=== PATIENT | female | born 1960 | race Caucasian/White ===

== ENCOUNTER 2021-11-15 10:25 | Emergency (ER) | payer OTHER ==
[2021-11-15] MEDS ORDERED: LIDOCAINE 1% W/EPI 1:100,000 MDV 50 ML VIAL ONE (10:40)
--- NOTE | 2021-11-15 10:58 | RAD REPORT ---
EXAM DESCRIPTION: CT - [id number] - 11/15/2021 10:43 am CLINICAL HISTORY: Trip and fall, left-sided head trauma, headache, neck pain COMPARISON: No comparisons TECHNIQUE: Axial 5 mm thick images of the head were obtained. Axial 2 mm thick images of the cervic al spine were obtained with sagittal and coronal reconstruction images generated and reviewed. All CT scans are performed using dose optimization technique as appropriate and may include automated exposure control or mA/KV adjustment according to patient size. FINDINGS: No intracranial hemorrhage, mass, edema or acute intracranial finding. No acute infarction of cortical level. No cortical edema or sulcal effacement. No significant atrophy or chronic ischemi c changes noted. Ventricles are normal. A 17 millimeter rounded area of CSF attenuation is present la teral to the right basal ganglia. 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 No extra-axial fluid collections. Mastoid air cells are clear. Minimal mucos al thickening seen in the posterior left maxillary sinus. Mild left deviation of the nasal septum is present. No globe or orbital content abnormality identified. No globe or orbit abnormality seen. Cervical bodies are normal in height. There is straightening the usual cervical lordosis that may be artifact of positioning for the scanned. C6-7 and C7-T1 mild disc space narrowing present. Multilevel posterior endplate spurring, disc bulge and uncovertebral joint hypertrophy are present. There is sp inal stenosis to 9 mm at C4-5 with mild left bony foraminal encroachment. There is spinal stenosis to 9 mm at C5-6 and 8 mm at C6-7. Mild bony foraminal encroachment at C5-6. No fracture or acute bony a bnormality. Central canal detail is inherently limited. No paraspinal mass or hematoma. IMPRESSION: Negative CT head examination for acute or significant finding. Negative CT cervical spine examination for acute finding. Multilevel cervical spondylosis changes pr esent with spinal stenosis at C4-5, C5-6 and C6-7.
--- NOTE | 2021-11-15 11:25 | RAD REPORT ---
EXAM DESCRIPTION: RAD - Humerus Left - 11/15/2021 10:58 am CLINICAL HISTORY: Left arm pain status post fall FINDINGS: No fracture is seen
[2021-11-15] MEDS ORDERED: DERMABOND SKIN ADHESIVE TOP ONE (11:47)
--- NOTE | 2021-11-15 12:05 | EDPHYS ---
Physician Documentation [facility] Name: Mariluz Vazquez Age: 61 yrs Sex: Female : 1960 Arrival Date: 11/15/2021 Time: 10:29 Bed 14 Private MD: ED Physician Ish Omalley HPI: 11/15 10:40 This 61 yrs old Female presents to ER via EMS with complaints of Fall Injury. cp 10:40 Details of fall: The patient fell from an upright position, while walking, and struck a cp concrete surface. Onset: The symptoms/episode began/occurred just prior to arrival. 10:40 Associated injuries: The patient sustained injury to the head, laceration, of the above cp left eye, swelling, left upper arm, painful injury. 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 reports concern patient did have brief LOC. Historical: - Allergies: 10:31 No Known Allergies; bp - Home Meds: 10:31 None [Active]; bp - PMHx: 10:31 None; bp - Immunization history:: Adult Immunizations up to date. - Social history:: Smoking status: Patient denies any tobacco usage or history of. ROS: 10:50 Constitutional: Negative for body aches, chills, fever, poor PO intake. cp 10:50 Eyes: Negative for pain, redness. cp 10:50 Neck: Negative for pain with movement, pain at rest, stiffness. 10:50 Cardiovascular: Negative for chest pain, palpitations. 10:50 Respiratory: Negative for cough, shortness of breath, wheezing. 10:50 Abdomen/GI: Negative for abdominal pain, vomiting, diarrhea, constipation. 10:50 Back: Negative for pain at rest, pain with movement. 10:50 MS/extremity: Positive for pain, tenderness, of the left upper arm, Negative for decreased range of motion, deformity, paresthesias. 10:50 Neuro: Negative for altered mental status, dizziness, seizure activity, weakness. 10:50 All other systems are negative. Exam: 10:53 Constitutional: The patient appears in no acute distress, alert, awake, cp non-diaphoretic, non-toxic, well developed, well nourished. 10:53 Head/face: Noted is ecchymosis, that is mild, of the above left eye, a laceration(s), cp that is deep, that is linear, of the above left eye, swelling, that is mild, of the above left eye. 10:53 Eyes: Pupils: equal, round, and reactive to light and accomodation, Extraocular movements: intact throughout, Conjunctiva: normal, no exudate, no injection, Sclera: no appreciated abnormality, Lids and lashes: appear normal, bilaterally. 10:53 ENT: External ear(s): are unremarkable, Ear canal(s): are normal, clear, TM's: dullness, bilaterally, Nose: is normal, Mouth: Lips: moist, Oral mucosa: moist, Posterior pharynx: Airway: no evidence of obstruction, patent. 10:53 Neck: C-spine: vertebral tenderness, is not appreciated, crepitus, is not appreciated, ROM/movement: pain, is not appreciated, limited range of motion, is not appreciated. 10:53 Chest/axilla: Inspection: normal. 10:53 Cardiovascular: Rate: normal, Rhythm: regular. 10:53 Respiratory: the patient does not display signs of respiratory distress, Respirations: normal, no use of accessory muscles, no retractions, labored breathing, is not present, Breath sounds: are clear throughout, no decreased breath sounds, no stridor, no wheezing. 10:53 Abdomen/GI: Inspection: abdomen appears normal, Palpation: abdomen is soft and non-tender, in all quadrants. 10:53 Back: pain, is absent, ROM is normal. 10:53 Musculoskeletal/extremity: Extremities: grossly normal except: noted in the left upper arm: pain, tenderness, There is no evidence of decreased ROM, deformity. 10:53 Neuro: Orientation: to person, place \T\ time. Mentation: is normal, Cerebellar function: is grossly normal, Motor: moves all fours, strength is normal, Sensation: is normal. Vital Signs: 10:29 BP 156 / 87; Pulse 73; Resp 16; Temp 98; Pulse Ox 99% ; bp 11:30 BP 147 / 79; Pulse 75; Resp 17; Pulse Ox 99% ; bp 12:30 BP 151 / 77; Pulse 77; Resp 17; Pulse Ox 100% ; bp Rika Coma Score: 10:40 Eye Response: spontaneous(4). Verbal Response: oriented(5). Motor Response: obeys cp commands(6). Total: 15. 12:03 Eye Response: spontaneous(4). Verbal Response: oriented(5). Motor Response: obeys cp commands(6). Total: 15. Laceration: 23:50 Wound Repair of 2cm ( 0.8in ) subcutaneous laceration to above left eye. Linear cp shaped.. Distal neuro/vascular/tendon intact. Anesthesia: Wound infiltrated with 3 mls of 1% lidocaine w/ Epi. Wound prep: Simple cleansing by me. Skin closed with 4 6-0 Prolene using interrupted sutures and sterile technique. Dressed with Bacitracin, 4x4's. Patient tolerated well. MDM: 10:31 Patient medically screened. cp 11:00 Differential diagnosis: abrasion, closed head injury, contusion, fracture, laceration, cp multiple trauma. 12:02 Data reviewed: vital signs, nurses notes, radiologic studies, CT scan, plain films. cp 12:02 Test interpretation: by ED physician or midlevel provider: plain radiologic studies. cp Counseling: I had a detailed discussion with the patient and/or guardian regarding: the historical points, exam findings, and any diagnostic results supporting the discharge/admit diagnosis, radiology results, to return to the emergency department if symptoms worsen or persist or if there are any questions or concerns that arise at home. Response to treatment: the patient's symptoms have markedly improved after treatment. Special discussion: Based on the patient's history, exam and DX evaluation, there is no indication for emergent intervention or inpatient TX. It is understood by the patient/guardian that if the SXs persist or worsen they need to return immediately for re-evaluation. 11/15 10:30 Order name: XRAY Humerus LEFT; Complete Time: 11:36 cp 11/15 10:30 Order name: CT Head C Spine; Complete Time: 11:36 cp 11/15 11:37 Interpretation: Reviewed report. cp 11/15 10:30 Order name: Dressing - Wound; Complete Time: 10:47 cp 11/15 10:30 Order name: Gloves, Sterile; Complete Time: 10:47 cp 11/15 10:30 Order name: Setup Suture Tray; Complete Time: 10:47 cp 11/15 11:36 Order name: Wound Care: please clean and irrigate wound; Complete Time: 12:28 cp 11/15 12:00 Order name: Wound dressing; Complete Time: 12:28 cp 11/15 12:00 Order name: Sling; Complete Time: 12:28 cp Administered Medications: 10:45 Drug: Lidocaine-Epinephrine -1%: (1:100,000) 5 ml Volume: 20 ml; Route: Infiltration; bp 12:28 Not Given (Patient Refused): Acetaminophen 1000 mg PO once bp Disposition Summary: 11/15/21 12:04 Discharge Ordered Location: Home cp Problem: new cp Symptoms: have improved cp Condition: Stable cp Diagnosis - Laceration without foreign body of unspecified part of head cp - Pain in left upper arm - from fall cp Followup: cp - With: Private Physician - When: 1 week - Reason: Staple/Suture removal Discharge Instructions: - Discharge Summary Sheet cp - Contusion cp - Head Injury, Adult cp - Facial Laceration cp Forms: - Medication Reconciliation Form cp - Thank You Letter cp - Antibiotic Education cp - Prescription Opioid Use cp Addendum: 11/18/2021 19:26 Co-signature as Attending Physician, Ish Omalley MD. r n Signatures: Dispatcher [employer] Ish Crowe MD MD rn Page, Corey, PA PA cp Troy Lao, RN RN bp
--- NOTE | 2021-11-15 12:05 | ER ---
Nurse's Notes [facility] Name: Mariluz Vazquez Age: 61 yrs Sex: Female : 1960 Arrival Date: 11/15/2021 Time: 10:29 Bed 14 Private MD: Diagnosis: Laceration without foreign body of unspecified part of head;Pain in left upper arm-from fall Presentation: 11/15 10:29 Chief complaint: EMS states: MECHANICAL FALL WHILE WALKING ON SIDEWALK, NO LOC, NO bp BLOOD THINNERS. Coronavirus screen: At this time, the client does not indicate any symptoms associated with coronavirus-19. Ebola Screen: No symptoms or risks identified at this time. Initial Sepsis Screen: Does the patient meet any 2 criteria? No. Patient's initial sepsis screen is negative. Does the patient have a suspected source of infection? No. Patient's initial sepsis screen is negative. Risk Assessment: Do you want to hurt yourself or someone else? Patient reports no desire to harm self or others. Onset of symptoms was November 15, 2021 at 09:30. Care prior to arrival: None. 10:29 Method Of Arrival: EMS: [facility] bp 10:29 Acuity: CHRISTIANE 4 bp Triage Assessment: 10:31 General: Appears in no apparent distress. comfortable, Behavior is calm, cooperative, bp appropriate for age. Pain: Complains of pain in head. EENT: No deficits noted. Neuro: Level of Consciousness is awake, alert, obeys commands, Oriented to Appropriate for age. Cardiovascular: No deficits noted. Respiratory: No deficits noted. GI: No signs and/or symptoms were reported involving the gastrointestinal system. : No signs and/or symptoms were reported regarding the genitourinary system. Derm: No deficits noted. Musculoskeletal: No deficits noted. Injury Description: Bruise sustained to head. Historical: - Allergies: 10:31 No Known Allergies; bp - Home Meds: 10:31 None [Active]; bp - PMHx: 10:31 None; bp - Immunization history:: Adult Immunizations up to date. - Social history:: Smoking status: Patient denies any tobacco usage or history of. Screenin:32 Abuse screen: Denies threats or abuse. Denies injuries from another. Nutritional bp screening: No deficits noted. Tuberculosis screening: No symptoms or risk factors identified. Fall Risk None identified. Assessment: 10:32 General: SEE TRIAGE NOTE. bp 11:45 Reassessment: PROVIDER AT B/S FOR LAC REPAIR. bp 12:30 Reassessment: PT D/C HOME AMBULATORY WITH FAMILY, DX WITH LACERATION. bp Vital Signs: 10:29 BP 156 / 87; Pulse 73; Resp 16; Temp 98; Pulse Ox 99% ; bp 11:30 BP 147 / 79; Pulse 75; Resp 17; Pulse Ox 99% ; bp 12:30 BP 151 / 77; Pulse 77; Resp 17; Pulse Ox 100% ; bp Crane Coma Score: 10:40 Eye Response: spontaneous(4). Verbal Response: oriented(5). Motor Response: obeys cp commands(6). Total: 15. 12:03 Eye Response: spontaneous(4). Verbal Response: oriented(5). Motor Response: obeys cp commands(6). Total: 15. ED Course: 10:29 Patient arrived in ED. bp 10:29 Wenceslao Okeefe PA is PHCP. cp 10:29 Ish Omalley MD is Attending Physician. cp 10:30 Triage completed. bp 10:31 Arm band placed on. bp 10:32 Patient has correct armband on for positive identification. Bed in low position. Call bp light in reach. Side rails up X2. Adult w/ patient. 10:34 Troy Lao, RN is Primary Nurse. bp 10:45 CT Head C Spine In Process Unspecified. EDMS 10:59 XRAY Humerus LEFT In Process Unspecified. EDMS 11:45 Wound care: to laceration located on left eye was cleaned with Betadine, Patient bp tolerated well. 12:15 Assist provider with laceration repair on left eye that was 2.5 cm. or less using bp sutures. Set up tray. Performed by Wenceslao HAYNES Dressed with Neosporin, Patient tolerated well. Wound care:. 12:30 Patient did not have IV access during this emergency room visit. bp Administered Medications: 10:45 Drug: Lidocaine-Epinephrine -1%: (1:100,000) 5 ml Volume: 20 ml; Route: Infiltration; bp 12:28 Not Given (Patient Refused): Acetaminophen 1000 mg PO once bp Outcome: 12:04 Discharge ordered by . cp 12:30 Discharged to home ambulatory, with family. bp 12:30 Condition: stable 12:30 Discharge instructions given to patient, Instructed on discharge instructions, follow up and referral plans. wound care, Demonstrated understanding of instructions, follow-up care, wound care. 12:32 Patient left the ED. bp Signatures: Dispatcher [employer] EDMS Wenceslao Okeefe PA PA cp Peltier, Brian, RN RN bp
[2021-11-15 12:36] VITALS: TEMP 98
[2021-11-15 12:38] VITALS: BP 151/77; O2SAT 100
== END 2021-11-15 12:32 | disposition home or self-care (01) ==
LOC: ER 10:25
PROC: 0JQ10ZZ Repair Face Subcutaneous Tissue and Fascia, Open Approach (ICD-10-PCS; principal; 2021-11-15)
DX: S01.81XA Laceration without foreign body of other part of head, initial encounter (principal); M79.622 Pain in left upper arm; W18.30XA Fall on same level, unspecified, initial encounter; Y93.01 Activity, walking, marching and hiking
CPT/HCPCS: 70450; 72125; 99284